=== PATIENT | male | born 1995 | race Caucasian/White ===

== ENCOUNTER 2017-03-04 10:32 | Emergency (ER) | payer OTHER, BC ==
--- NOTE | 2017-03-04 12:14 | ED Physician Documentation ---
PD HPI HEENT - Stated complaint Stated Complaint: CHIPPED TEETH - Chief complaint Chief Complaint: Heent - History obtained from History obtained from: Patient - History of Present Illness Timing - onset: Other (He works for a construction company, was using a nail gun and it recoiled and hit him, he has a fracture of #8 without pain, no other injuries.) Review of Systems Constitutional: denies: Fever, Chills Nose: denies: Rhinorrhea / runny nose, Congestion Throat: denies: Sore throat PD PAST MEDICAL HISTORY - Past Medical History Past Medical History: No Endocrine/Autoimmune: None - Past Surgical History Past Surgical History: Yes - Present Medications Home Medications: Ambulatory Orders Medication Instructions Recorded Confirmed No Known Home Medications [No 05/10/13 03/04/17 Known Home Medications] - Allergies Allergies/Adverse Reactions: Allergies Allergy/AdvReac Type Severity Reaction Status Date / Time No Known Drug Allergies Allergy Verified 03/04/17 10:58 - Social History Does the pt smoke?: No Smoking Status: Never smoker Does the pt drink ETOH?: Yes Does the pt have substance abuse?: Yes Substance Use and Type: Marijuana - Immunizations Immunizations: TDAP >10years/unknown PD ED PE NORMAL - Vitals Vital signs reviewed: Yes - General General: Alert and oriented X 3, No acute distress - HEENT HEENT: Other (Fracture of #8, oblique posterior just into enamel) - Neuro Neuro: Alert and oriented X 3, 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, Normal speech - Psych Psych: Normal mood, Normal affect Results - Vitals Vitals: Vital Signs - 24 hr 03/04/17 10:41 Temperature 37.2 C Heart Rate 76 Respiratory 18 Rate Blood Pressure 129/85 H O2 Saturation 98 Oxygen O2 Source Room air Departure - Departure Disposition: 01 Home, Self Care Clinical Impression: Fracture, tooth Qualifiers: Encounter type: initial encounter Fracture type: closed Qualified Code(s): S02.5XXA - Fracture of tooth (traumatic), initial encounter for closed fracture Condition: Good Record reviewed to determine appropriate education?: Yes Instructions: ED Fx Tooth Comments: FOLLOWUP WITH A DENTIST OF YOUR CHOOSING WHO TAKES L AND I, TAKE THE L AND I PAPERWORK WITH YOU Your blood pressure was elevated today on check into the emergency department. This does not mean that you have hypertension, it is a common phenomenon to come to the emergency department and have elevated blood pressure. I recommend that she see her primary care physician within the week to have it rechecked when you are feeling better.
[2017-03-04 12:20] VITALS: BP 114/75
== END 2017-03-04 12:20 | disposition home or self-care (01) ==
LOC: ED 10:32
DX: S02.5XXA Fracture of tooth (traumatic), initial encounter for closed fracture (principal); W22.8XXA Striking against or struck by other objects, initial encounter; Y93.89 Activity, other specified; Y92.69 Other specified industrial and construction area as the place of occurrence of the external cause; Y99.0 Civilian activity done for income or pay; R03.0 Elevated blood-pressure reading, without diagnosis of hypertension
CPT/HCPCS: 1040M; 99281; 99283

== ENCOUNTER 2017-06-16 17:14 | Emergency (ER) | payer BC ==
[2017-06-16 18:02] VITALS: BP 128/78
[2017-06-16] MEDS ORDERED: ALBUTEROL NEB 2.5 MG/3 ML INH STA (18:53)
[2017-06-16] MEDS ORDERED: predniSONE 20 MG TABLET PO STA (18:53)
[2017-06-16] MEDS ORDERED: DOXYCYCLINE 100 MG TABLET PO STA (18:53)
[2017-06-16] MEDS ORDERED: HYDROcod/ACETAM 5/325 MG TABLET PO STA (18:53)
--- NOTE | 2017-06-16 18:56 | ED Physician Documentation ---
History of Present Illness - Stated complaint Stated Complaint: MALE - Chief complaint Chief Complaint: General - History obtained from History obtained from: Patient - History of Present Illness Timing: Other (Several days of productive cough with shortness of breath and green sputum. He does not smoke. The cough is so bad that at night when he coughs very hard it radiates down to the left testicle. He does not have testicular pain when he is not coughing. No fevers.) Review of Systems Constitutional: denies: Fever, Chills Nose: denies: Rhinorrhea / runny nose, Congestion Cardiac: denies: Chest pain / pressure, Palpitations Respiratory: reports: Dyspnea, Cough GI: denies: Abdominal Pain PD PAST MEDICAL HISTORY - Past Medical History Past Medical History: No Endocrine/Autoimmune: None - Past Surgical History Past Surgical History: Yes - Present Medications Home Medications: Ambulatory Orders Medication Instructions Recorded Confirmed Albuterol Sulfate [Proventil Hfa 1 - 2 puffs IH Q4H PRN #1 06/16/17 Inhaler] hfa.[email or web address] Doxycycline Hyclate 100 mg PO BID #14 tablet 06/16/17 HYDROcod/ACETAM 5/325 [Bristow 5/325] 1 - 2 ea PO Q6H PRN #15 tablet 06/16/17 predniSONE [Deltasone] 60 mg PO DAILY 5 Days tablet 06/16/17 - Allergies Allergies/Adverse Reactions: Allergies Allergy/AdvReac Type Severity Reaction Status Date / Time No Known Drug Allergies Allergy Verified 03/04/17 10:58 - Social History Does the pt smoke?: No Smoking Status: Never smoker Does the pt drink ETOH?: Yes Does the pt have substance abuse?: Yes - Immunizations Immunizations: TDAP >10years/unknown PD ED PE NORMAL - Vitals Vital signs reviewed: Yes - General General: Alert and oriented X 3, No acute distress - HEENT HEENT: PERRL, EOMI - Neck Neck: Supple, no meningeal sign, No bony TTP, No bruit - Cardiac Cardiac: RRR, No murmur - Respiratory Respiratory: No respiratory distress, Other (Markedly wheezy and diminished throughout without focal findings) - Abdomen Abdomen: Soft, Non tender - Male Male : Other (Normal descended testicles with normal lie, nontender, normal cremaster reflexes bilaterally, no inguinal masses or tenderness.) - Neuro Neuro: Alert and oriented X 3, Normal speech - Psych Psych: Normal mood, Normal affect Results - Vitals Vitals: Vital Signs - 24 hr 06/16/17 06/16/17 17:32 17:53 Temperature 37.1 C Heart Rate 63 62 Respiratory 18 20 Rate Blood Pressure 140/94 H 128/78 O2 Saturation 95 95 Oxygen O2 Source Room air PD MEDICAL DECISION MAKING - ED course ED course: 21-year-old with evidence of bronchitis and a cough so bad that it makes his left testicle hurt. Torsion is not on the differential, he does not have any pain when he is not coughing, this is inconsistent with torsion. Departure - Departure Disposition: 01 Home, Self Care Clinical Impression: Bronchitis Condition: Good Record reviewed to determine appropriate education?: Yes Instructions: ED Bronchitis Asthmatic Prescriptions: Albuterol Sulfate [Proventil Hfa Inhaler] 1 - 2 puffs IH Q4H PRN #1 hfa.aer.ad PRN Reason: Cough Doxycycline Hyclate 100 mg PO BID #14 tablet HYDROcod/ACETAM 5/325 [Bristow 5/325] 1 - 2 ea PO Q6H PRN #15 tablet PRN Reason: Pain predniSONE [Deltasone] 60 mg PO DAILY 5 Days tablet Comments: Call your doctor to arrange a follow-up appointment, make the next available appointment. In the interim, return anytime if worse or if new symptoms develop. Do not drink or drive while taking narcotic pain medication. Note that many narcotic pain relievers also contain Tylenol/acetaminophen. Please ensure that your total dose of acetaminophen from all sources does not exceed 3 g (3000 mg) per day. You may get constipated while on this medication. Take a stool softener such as Colace twice a day while you are on it. Also add an hont-swh-auwezzb laxative such as senna or MiraLAX on any day that you do not have a bowel movement. If you received a narcotic pain medication or sedative while in the emergency department, do not drive for the next 24 hours. Forms: Activity restrictions
[2017-06-16] MEDS ORDERED: predniSONE 20 MG TABLET ONE (19:15)
[2017-06-16] MEDS ORDERED: DOXYCYCLINE 100 MG TABLET PO ONE (19:15)
[2017-06-16] MEDS ORDERED: HYDROcod/ACETAM 5/325 MG TABLET ONE (19:16)
[2017-06-16] MEDS ORDERED: ALBUTEROL NEB 2.5 MG/3 ML INH ONE (19:16)
== END 2017-06-16 19:41 | disposition home or self-care (01) ==
LOC: ED 17:14
DX: J40 Bronchitis, not specified as acute or chronic (principal)
CPT/HCPCS: 94640; 94664; 99283; A9270; J7512; J7613

== ENCOUNTER 2018-02-20 07:24 | Emergency (ER) | payer OTHER, BC ==
[2018-02-20 07:31] VITALS: BP 148/73
[2018-02-20] MEDS ORDERED: PROPARACAINE 0.5% OPHTH DROPS 15 ML RIGHTEYE STA (07:40)
[2018-02-20] MEDS ORDERED: ERYTHROMYCIN OPHTH OINT 1 GM TUBE RIGHTEYE STA (07:55)
--- NOTE | 2018-02-20 07:59 | ED Physician Documentation ---
PD HPI OPHTHO - Stated complaint Stated Complaint: R EYE INJ - Chief complaint Chief Complaint: Heent - History obtained from History obtained from: Patient PD PAST MEDICAL HISTORY - Past Medical History Past Medical History: No Endocrine/Autoimmune: None - Past Surgical History Past Surgical History: Yes - Allergies Allergies/Adverse Reactions: Allergies Allergy/AdvReac Type Severity Reaction Status Date / Time No Known Drug Allergies Allergy Verified 02/20/18 07:31 - Social History Does the pt smoke?: No Smoking Status: Never smoker Does the pt drink ETOH?: Yes Does the pt have substance abuse?: Yes - Immunizations Immunizations: TDAP >10years/unknown - POLST Patient has POLST: No Results - Vitals Vitals: Vital Signs - 24 hr 02/20/18 07:28 Temperature 36.5 C Heart Rate 61 Respiratory 16 Rate Blood Pressure 148/73 H O2 Saturation 98 Oxygen O2 Source Room air PD MEDICAL DECISION MAKING - Sepsis Event Vital Signs: Vital Signs - 24 hr 02/20/18 07:28 Temperature 36.5 C Heart Rate 61 Respiratory 16 Rate Blood Pressure 148/73 H O2 Saturation 98 Oxygen O2 Source Room air Departure - Departure Disposition: 01 Home, Self Care Clinical Impression: Contusion of right eye Qualifiers: Encounter type: initial encounter Qualified Code(s): S05.11XA - Contusion of eyeball and orbital tissues, right eye, initial encounter Conjunctivitis Qualifiers: Conjunctivitis type: acute Acute conjunctivitis type: unspecified Laterality: right Qualified Code(s): H10.31 - Unspecified acute conjunctivitis, right eye Condition: Stable Instructions: ED Contusion Eye Follow-Up: [facility] [Provider Group] [facility] [Provider Group] Comments: Apply erythromycin ophthalmic ointment in your right eye 4 times daily for the next 2 days. You can use Tylenol or ibuprofen if needed for discomfort. Follow-up with ophthalmology, or return to the emergency department if you develop increasing pain or swelling of your eye, impaired visual acuity, or otherwise worsening symptoms.
--- NOTE | 2018-02-20 08:01 | ED Physician Documentation ---
PD HPI OPHTHO - Stated complaint Stated Complaint: R EYE INJ - Chief complaint Chief Complaint: Heent - History obtained from History obtained from: Patient - History of Present Illness Timing - onset: How many days ago (2) Timing - details: Still present Location: Right Associated symptoms: Redness, Tearing, FB sensation. No: Decreased vision Contributing factors: Blunt trauma Similar symptoms before: Has not had sx before - Additional information Additional information: The patient is a 22-year-old male who presents with right eye discomfort. He was using a nail gun 2 days ago on the job site, when plastic from the nail clip flew from the gun and impacted his right eye. He has noticed redness and swelling of the eyelid since that time, and has a foreign body sensation in the right eye. There has been tearing, without purulent drainage. He does not wear corrective lenses. He has no history of similar symptoms in the past. Review of Systems Constitutional: denies: Fever Eyes: reports: Irritation. denies: Decreased vision, Photophobia Nose: denies: Congestion Throat: denies: Sore throat GI: denies: Nausea, Vomiting Skin: denies: Rash Neurologic: denies: Headache PD PAST MEDICAL HISTORY - Past Medical History Past Medical History: No Endocrine/Autoimmune: None - Past Surgical History Past Surgical History: Yes - Allergies Allergies/Adverse Reactions: Allergies Allergy/AdvReac Type Severity Reaction Status Date / Time No Known Drug Allergies Allergy Verified 02/20/18 07:31 - Social History Does the pt smoke?: No Smoking Status: Never smoker Does the pt drink ETOH?: Yes Does the pt have substance abuse?: Yes - Immunizations Immunizations: TDAP >10years/unknown - POLST Patient has POLST: No PD ED PE NORMAL - Vitals Vital signs reviewed: Yes (Mild hypertension initially.) - General General: Alert and oriented X 3, Well developed/nourished - HEENT HEENT: Atraumatic, PERRL, EOMI - Neck Neck: Supple, no meningeal sign, No adenopathy - Respiratory Respiratory: No respiratory distress - Derm Derm: No rash - Neuro Neuro: Alert and oriented X 3, Normal speech PD ED PE EXPANDED - Eyes Eyes: Visual acuity - see nn (20/30 in each eye.), PERRL, Normal accommodation, EOMI, Right eye, Eyelid swelling (right upper eyelid.), No eyelid FB (everted), Injected conj/sclera, Anterior chambers clear. No: Exudate, Conj/sclera FB, Corneal FB, Corneal abrasion, Fluorescein uptake, Hyphema Results - Vitals Vitals: Vital Signs - 24 hr 02/20/18 07:28 Temperature 36.5 C Heart Rate 61 Respiratory 16 Rate Blood Pressure 148/73 H O2 Saturation 98 Oxygen O2 Source Room air PD MEDICAL DECISION MAKING - ED course Complexity details: considered differential, d/w patient, other (An L&I form was completed.) ED course: The patient's presentation is most consistent with contusion to the right eye and upper eyelid, with no evidence of corneal abrasion or ocular foreign body. Given the conjunctival injection, swelling of the upper lid, and mechanism of injury, the possibility of conjunctivitis is considered. Treatment in the emergency department included administration of erythromycin ophthalmic ointment. The remainder of the tube was dispensed. I discussed with him the expected course of injury, outpatient follow-up, as well as potentially worrisome signs or symptoms that should prompt reevaluation in the emergency department. An L&I form was completed. - Sepsis Event Vital Signs: Vital Signs - 24 hr 02/20/18 07:28 Temperature 36.5 C Heart Rate 61 Respiratory 16 Rate Blood Pressure 148/73 H O2 Saturation 98 Oxygen O2 Source Room air Departure - Departure Disposition: 01 Home, Self Care Clinical Impression: Contusion of right eye Qualifiers: Encounter type: initial encounter Qualified Code(s): S05.11XA - Contusion of eyeball and orbital tissues, right eye, initial encounter Conjunctivitis Qualifiers: Conjunctivitis type: acute Acute conjunctivitis type: unspecified Laterality: right Qualified Code(s): H10.31 - Unspecified acute conjunctivitis, right eye Condition: Stable Instructions: ED Contusion Eye Follow-Up: [facility] [Provider Group] Located [facility] [Provider Group] Comments: Apply erythromycin ophthalmic ointment in your right eye 4 times daily for the next 2 days. You can use Tylenol or ibuprofen if needed for discomfort. Follow-up with ophthalmology, or return to the emergency department if you develop increasing pain or swelling of your eye, impaired visual acuity, or otherwise worsening symptoms.
--- NOTE | 2018-02-20 08:17 | ED Physician Documentation ---
ED Addendum - Addendum Addendum: Coders: Please note that the report initiated at 7:56 AM was closed by mistake prior to my completion of the patient report. Notice that a new document was opened at 8:01 AM. The initial document should be disregarded. 02/20/18 08:14
== END 2018-02-20 08:10 | disposition home or self-care (01) ==
LOC: ED 07:24
DX: S05.11XA Contusion of eyeball and orbital tissues, right eye, initial encounter (principal); W20.8XXA Other cause of strike by thrown, projected or falling object, initial encounter; Y93.89 Activity, other specified; Y92.89 Other specified places as the place of occurrence of the external cause; Y99.0 Civilian activity done for income or pay
CPT/HCPCS: 1040M; 99283; J3490

== ENCOUNTER 2018-07-17 07:32 | Emergency (ER) | payer BC ==
[2018-07-17 08:18] LABS: MUDS CUTOFF CONCENTRATIONS CUTOFF CONC BELOW:
[2018-07-17 08:20] LABS: GLUCOSE, URINE (UA) NEGATIVE (NEGATIVE); KETONES,URINE (UA) 40 mg/dL (NEGATIVE); LEUKOCYTE ESTERASE, URINE NEGATIVE (NEGATIVE); NITRITE,URINE NEGATIVE (NEGATIVE); OCCULT BLOOD,URINE NEGATIVE (NEGATIVE); PROTEIN,URINE NEGATIVE (NEGATIVE); UROBILINOGEN,URINE 0.2 (NORMAL) E.U./dL (NORMAL)
[2018-07-17 08:23] LABS: CLARITY,URINE CLEAR (CLEAR)
[2018-07-17 08:25] LABS: BILIRUBIN,URINE NEGATIVE (NEGATIVE); ICTOTEST,URINE NEGATIVE
[2018-07-17 08:29] LABS: AMPHETAMINE SCREEN,URINE NEGATIVE (NEGATIVE); COCAINE SCREEN URINE NEGATIVE (NEGATIVE); METHAMPHETAMINES SCREEN, URINE NEGATIVE (NEGATIVE); OPIATE SCREEN, URINE NEGATIVE (NEGATIVE)
[2018-07-17 08:30] LABS: BENZODIAZEPINES SCREEN, URINE NEGATIVE (NEGATIVE); METHADONE SCREEN, URINE NEGATIVE (NEGATIVE); OXYCODONE SCREEN, URINE NEGATIVE (NEGATIVE); PROPOXYPHENE SCREEN, URINE NEGATIVE (NEGATIVE); TRICYCLIC ANTIDEPRESSANT,URINE NEGATIVE (NEGATIVE)
[2018-07-17 08:48] LABS: BASOPHILS % (AUTO) 0.5 %; EOSINOPHILS % (AUTO) 0.6 %; LYMPHOCYTES # (AUTO) 1.5 10^3/uL (1.5-3.5); LYMPHOCYTES % (AUTO) 25.7 %; MEAN CORPUSCULAR HEMOGLOBIN 30.3 pg (27.0-31.0); MEAN CORPUSCULAR HGB CONC 34.4 g/dL (32.0-36.0); MEAN CORPUSCULAR VOLUME 88.1 fL (80.0-94.0); MEAN PLATELET VOLUME 8.3 fL (7.4-11.4); MONOCYTES # (AUTO) 0.5 10^3/uL (0.0-1.0); MONOCYTES % (AUTO) 8.1 %; NEUTROPHILS # (AUTO) 3.7 10^3/uL (1.5-6.6); NEUTROPHILS % (AUTO) 65.1 %; PLT - PLATELET COUNT 181 10^3/uL (130-450); RED BLOOD COUNT 4.95 10^6/uL (4.70-6.10); RED CELL DISTRIBUTION WIDTH 12.9 % (12.0-15.0); WHITE BLOOD COUNT 5.7 x10^3/uL (4.8-10.8)
[2018-07-17 09:04] LABS: ACETAMINOPHEN < 10 ug/mL (10-30); ALBUMIN/GLOBULIN RATIO 1.8 (1.0-2.2); ALKALINE PHOSPHATASE 61 IU/L (42-121); ALT ALANINE AMINOTRANSFERASE 21 IU/L (10-60); AST ASPARTATE AMINOTRANSFERASE 32 IU/L (10-42); BILIRUBIN,TOTAL 1.9 mg/dL (0.2-1.0); BUN - BLOOD UREA NITROGEN 12 mg/dL (6-20); CALCIUM 9.7 mg/dL (8.5-10.3); CARBON DIOXIDE - CO2 24 mmol/L (21-32); CHLORIDE 101 mmol/L (101-111); CREATININE 0.9 mg/dL (0.6-1.2); GFR - MDRD 107 (>89); GLUCOSE 99 mg/dL (70-100); LIPASE 22 U/L (22-51); SALICYLATE < 6.0 mg/dL; SODIUM 136 mmol/L (135-145); TOTAL PROTEIN 7.8 g/dL (6.7-8.2)
--- NOTE | 2018-07-17 09:19 | ED Physician Documentation ---
PD HPI MHE - Stated complaint Stated Complaint: MHE - Chief complaint Chief Complaint: MHE - History obtained from History obtained from: Patient, Family - History of Present Illness Primary symptom: Other Timing - onset: How many years ago (!Hearing voices) Pain level max: 0 Pain level now: 0 Contributing factors: Substance abuse - drugs Similar symptoms before: No diagnosis Recently seen: Not recently seen - Additional information Additional information: 22-year-old male with no past medical or surgical history Or psychiatric admission here with father and sister who reported that patient had been hearing voices since July 12. Patient claimed that he has been hearing voices on and off for the past year. Family is concerned as patient disrupted a camper during their camping vacation in [place] last July 12. He thought that the campers were talking about him. Father stated that the past few days patient was hearing voices of people talking about him. Patient denies any trauma, injury, insect or animal bites. They claim that patient vapes CBD or marijuana oil 5 or 6 times a day. They also stated that he only drinks occasionally. Per father patient's mother is in [place] and has history of schizophrenia and a nervous breakdown but has refused treatment or accepting that she has a mental health problem. Review of Systems Ten Systems: 10 systems reviewed and negative Constitutional: denies: Fever, Chills, Myalgias Ears: denies: Ear pain Throat: denies: Sore throat Cardiac: denies: Chest pain / pressure Respiratory: denies: Dyspnea, Cough GI: denies: Abdominal Pain, Vomiting, Diarrhea Skin: denies: Rash, Bite / sting Musculoskeletal: denies: Neck pain, Back pain Neurologic: reports: Headache (Mild headache July 13 during verification). denies: Generalized weakness, Numbness, Difficulty speaking, Syncope, Seizure, Confused, Altered mental status, Unresponsive, Head injury, LOC Psychiatric: reports: Hallucinations. denies: Depressed, Suicidal, Homicidal, Delusions, Anxiety PD PAST MEDICAL HISTORY - Past Medical History Endocrine/Autoimmune: None - Past Surgical History Past Surgical History: Yes - Present Medications Home Medications: Ambulatory Orders Medication Instructions Recorded Confirmed No Known Home Medications 07/17/18 07/17/18 - Allergies Allergies/Adverse Reactions: Allergies Allergy/AdvReac Type Severity Reaction Status Date / Time No Known Drug Allergies Allergy Verified 07/17/18 07:48 - Social History Does the pt smoke?: No Smoking Status: Never smoker Does the pt drink ETOH?: Yes Does the pt have substance abuse?: Yes Substance Use and Type: Marijuana - Immunizations Immunizations: TDAP >10years/unknown - POLST Patient has POLST: No PD ED PE NORMAL - Vitals Vital signs reviewed: Yes - General General: Alert and oriented X 3, No acute distress, Well developed/nourished - HEENT HEENT: Atraumatic, PERRL, EOMI, Ears normal, Moist mucous membranes, Pharynx benign - Neck Neck: Supple, no meningeal sign, No bony TTP - Cardiac Cardiac: RRR, No murmur - Respiratory Respiratory: Clear bilaterally - Abdomen Abdomen: Normal bowel sounds, Soft, Non tender, Non distended - Back Back: No CVA TTP, No spinal TTP - Derm Derm: Normal color, Warm and dry, No rash - Extremities Extremities: No deformity, No tenderness to palpate, Normal ROM s pain - Neuro Neuro: Alert and oriented X 3, 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 When asked what they are talking about he stated he does not hear them.) Results - Vitals Vitals: Vital Signs - 24 hr 07/17/18 07/17/18 07/17/18 07:34 11:11 17:17 Temperature 37.3 C 37 C 36.8 C Heart Rate 72 72 74 Respiratory 16 16 15 Rate Blood Pressure 141/96 H 132/78 H 127/84 H O2 Saturation 99 99 98 Oxygen O2 Source Room air - Labs Labs: Laboratory Tests 07/17/18 07/17/18 07/17/18 08:10 08:37 08:37 WBC 5.7 RBC 4.95 Hgb 15.0 Hct 43.6 MCV 88.1 MCH 30.3 MCHC 34.4 RDW 12.9 Plt Count 181 MPV 8.3 Neut # (Auto) 3.7 Lymph # (Auto) 1.5 Ellsworth # (Auto) 0.5 Eos # (Auto) 0.0 Baso # (Auto) 0.0 Absolute Nucleated RBC 0.00 Nucleated RBC % 0.0 Sodium 136 Potassium 3.5 Chloride 101 Carbon Dioxide 24 Anion Gap 11.0 BUN 12 Creatinine 0.9 Estimated GFR (MDRD) 107 Glucose 99 Calcium 9.7 Total Bilirubin 1.9 H AST 32 ALT 21 Alkaline Phosphatase 61 Total Protein 7.8 Albumin 5.0 Globulin 2.8 Albumin/Globulin Ratio 1.8 Lipase 22 TSH Urine Color DARK YELLOW Urine Clarity CLEAR Urine pH 6.0 Ur Specific Liberty >=1.030 H Urine Protein NEGATIVE Urine Glucose (UA) NEGATIVE Urine Ketones 40 H Urine Occult Blood NEGATIVE Urine Nitrite NEGATIVE Urine Bilirubin NEGATIVE Urine Urobilinogen 0.2 (NORMAL) Ur Leukocyte Esterase NEGATIVE Ur Microscopic Review NOT INDICATED Urine Culture Comments NOT INDICATED Salicylates < 6.0 Urine Opiates Screen NEGATIVE Ur Oxycodone Screen NEGATIVE Urine Methadone Screen NEGATIVE Ur Propoxyphene Screen NEGATIVE Acetaminophen < 10 L Ur Barbiturates Screen NEGATIVE Ur Tricyclics Screen NEGATIVE Ur Phencyclidine Scrn NEGATIVE Ur Amphetamine Screen NEGATIVE U Methamphetamines Scrn NEGATIVE U Benzodiazepines Scrn NEGATIVE Urine Cocaine Screen NEGATIVE U Cannabinoids Screen POSITIVE H Ethyl Alcohol < 5.0 07/17/18 08:37 WBC RBC Hgb Hct MCV MCH MCHC RDW Plt Count MPV Neut # (Auto) Lymph # (Auto) Ellsworth # (Auto) Eos # (Auto) Baso # (Auto) Absolute Nucleated RBC Nucleated RBC % Sodium Potassium Chloride Carbon Dioxide Anion Gap BUN Creatinine Estimated GFR (MDRD) Glucose Calcium Total Bilirubin AST ALT Alkaline Phosphatase Total Protein Albumin Globulin Albumin/Globulin Ratio Lipase TSH 0.64 Urine Color Urine Clarity Urine pH Ur Specific Liberty Urine Protein Urine Glucose (UA) Urine Ketones Urine Occult Blood Urine Nitrite Urine Bilirubin Urine Urobilinogen Ur Leukocyte Esterase Ur Microscopic Review Urine Culture Comments Salicylates Urine Opiates Screen Ur Oxycodone Screen Urine Methadone Screen Ur Propoxyphene Screen Acetaminophen Ur Barbiturates Screen Ur Tricyclics Screen Ur Phencyclidine Scrn Ur Amphetamine Screen U Methamphetamines Scrn U Benzodiazepines Scrn Urine Cocaine Screen U Cannabinoids Screen Ethyl Alcohol PD MEDICAL DECISION MAKING - ED course Complexity details: reviewed results, re-evaluated patient, considered differential (Drug intake,Thyroid disease, intracranial mass, electrolyte imbalance, psychosis NOS, schizophrenia), d/w patient, d/w family, d/w cancer program consultant ED course: [id number] patient and family inform of test results. And pending return call of social service assistant. [id number] social service assistant in the ER and will be evaluating patient. 0991 DCR evaluated patient and he will detain the patient.[id number] patient had been eating well per nurse but is still complaining of mild headache and requesting for Tylenol. Psych placement pending.[id number] DCR Cricket informed me patient has been accepted to [facility] under the care of Dr. Clay. Transfer forms filled and signout given to Dr. Kline. Departure - Departure Disposition: 65 Psych Hosp/Unit DC/Xfer Clinical Impression: Hallucinations Unspecified psychosis Qualifiers: Psychosis type: unspecified psychosis type Qualified Code(s): F29 - Unspecified psychosis not due to a substance or known physiological condition Condition: Stable
--- NOTE | 2018-07-17 10:16 | CT Report ---
Reason: hearing voices Procedure Date: 07/17/2018 Accession Number: [id number] / [id number] Procedure: CT - Head W/O CPT Code: FULL RESULT: EXAM: CT HEAD WITHOUT CONTRAST EXAM DATE: 07/17/2018 09:53 AM. CLINICAL HISTORY: Hearing voices. COMPARISON: None. TECHNIQUE: Multiaxial CT images were obtained from the foramen magnum to the vertex. Reformats: Sagittal and coronal. IV contrast: None. In accordance with CT protocol optimization, one or more of the following dose reduction techniques were utilized for this exam: automated exposure control, adjustment of mA and/or KV based on patient size, or use of iterative reconstructive technique. FINDINGS: Parenchyma: No intraparenchymal hemorrhage. No evidence of mass, midline shift, or CT findings of infarction. Chavez-white differentiation is distinct. Extraaxial Spaces: Normal for age. No subdural or epidural collections identified. Ventricles: Normal in size and position. Sinuses and Orbits: Imaged paranasal sinuses, orbits, and mastoids show no significant abnormality. Bones: No evidence of fracture or calvarial defect. Other: None. IMPRESSION: Normal head CT. RADIA
[2018-07-17] MEDS ORDERED: ACETAMINOPHEN 325 MG TABLET PO STA (17:34)
[2018-07-17 21:24] VITALS: BP 141/89
== END 2018-07-17 21:45 ==
LOC: ED 07:32
DX: F29 Unspecified psychosis not due to a substance or known physiological condition (principal)
CPT/HCPCS: 36415; 70450; 80053; 80306; 80307; 80320; 80329; 81003; 83690; 84443; 85025; 99285; A9270; 81001; 87086; 99284

== ENCOUNTER 2019-03-12 15:31 | Outpatient (CLI) | payer BC ==
[2019-03-15 10:30] LABS: HIV AG/AB 4TH GEN NON-REACTIVE (NON-REACTIVE)
[2019-03-15 13:18] LABS: HEPATITIS C ANTIBODY NON-REACTIVE (NON-REACTIVE)
[2019-03-16 09:01] LABS: HSV 1 IGG TYPE SPECIFIC AB <0.90 index; HSV 2 IGG TYPE SPECIFIC AB <0.90 index
== END 2019-03-12 15:32 | disposition home or self-care (01) ==
LOC: LAB.S 15:31
PROVIDERS: ATTEND Nurse Practitioner
DX: Z11.3 Encounter for screening for infections with a predominantly sexual mode of transmission (principal)
CPT/HCPCS: 36415; 81599; 86695; 86696; 86803; 87389

== ENCOUNTER 2019-07-06 15:52 | Emergency (ER) | payer BC ==
--- NOTE | 2019-07-06 16:21 | ED Physician Documentation ---
PD HPI URI - Stated complaint Stated Complaint: FACIAL PAIN/COUGH/FEVER - Chief complaint Chief Complaint: Heent - History obtained from History obtained from: Patient - History of Present Illness Timing - onset: How many weeks ago (1) Timing duration: Weeks (1) Timing details: Still present Associated symptoms: Ear pain (left), Nasal congestion, Sore throat (some in mornings, not consistent), Other (he has had red spot on side of nose and it seems more red this week. Also he feels there is swelling on left cheek, with pressure feeling. Is concerned it is related to the nose redness. 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 No: Fever, Dry cough, Chest pain, Dyspnea Contributing factors: No: Sick contact, Immunocompromised Similar symptoms before: Has not had sx before Review of Systems Constitutional: reports: Myalgias. denies: Fever, Chills Nose: reports: Congestion, Sinus pressure / pain Throat: reports: Sore throat Respiratory: denies: Cough GI: denies: Vomiting, Diarrhea Neurologic: denies: Focal weakness, Near syncope, Headache PD PAST MEDICAL HISTORY - Past Medical History Past Medical History: Yes Cardiovascular: None Respiratory: None Neuro: None Endocrine/Autoimmune: None GI: None : None HEENT: None Psych: None Musculoskeletal: None Derm: None - Past Surgical History Past Surgical History: Yes - Present Medications Home Medications: Ambulatory Orders Medication Instructions Recorded Confirmed Cetirizine [ZyrTEC] 10 mg PO DAILY #15 tablet 07/06/19 Doxycycline Monohydrate 100 mg PO BID #14 tablet 07/06/19 dexAMETHasone [Decadron] 4 mg PO DAILY #5 tablet 07/06/19 - Allergies Allergies/Adverse Reactions: Allergies Allergy/AdvReac Type Severity Reaction Status Date / Time No Known Drug Allergies Allergy Verified 07/06/19 16:01 - Social History Does the pt smoke?: Yes Smoking Status: Current some day smoker Does the pt drink ETOH?: Yes Does the pt have substance abuse?: Yes Substance Use and Type: Marijuana - Immunizations Immunizations are current?: No Immunizations: TDAP >10years/unknown - POLST Patient has POLST: No PD ED PE NORMAL - Vitals Vital signs reviewed: Yes - General General: Alert and oriented X 3, No acute distress, Well developed/nourished - HEENT HEENT: Moist mucous membranes, Pharynx benign, Other (left side of nose with red spot about 1/2 cm diameter with normal skin texture, blanches, no ulceration nor raised, appearing like small capillary dilation. ). No: Ears normal (right is normal. Left TM with some fluid behind the drum but no redness nor swelling. ) - Neck Neck: Supple, no meningeal sign - Cardiac Cardiac: RRR, No murmur - Respiratory Respiratory: Clear bilaterally - Derm Derm: Normal color, Warm and dry - Neuro Neuro: Alert and oriented X 3, No motor deficit, Normal speech Results - Vitals Vitals: Vital Signs - 24 hr 07/06/19 07/06/19 16:01 17:22 Temperature 37.2 C 36.7 C Heart Rate 67 60 Respiratory 16 16 Rate Blood Pressure 128/74 125/72 O2 Saturation 99 97 Oxygen O2 Source Room air PD MEDICAL DECISION MAKING - ED course Complexity details: considered differential (the red spot on his nose appears benign and unrelated. He sounds like sinus symptoms, and then just viral vs bacterial, given the focal sinus symptoms. ), d/w patient Departure - Departure Disposition: 01 Home, Self Care Clinical Impression: Telangiectasia of face Acute sinusitis Qualifiers: Sinusitis location: unspecified location Recurrence: non-recurrent Qualified Code(s): J01.90 - Acute sinusitis, unspecified Condition: Stable Record reviewed to determine appropriate education?: Yes Instructions: ED Sinusitis Abx Tx Follow-Up: Clare Lopez ARNP, [facility] [employer] [facility] [Primary Care Provider] - Prescriptions: Cetirizine [ZyrTEC] 10 mg PO DAILY #15 tablet dexAMETHasone [Decadron] 4 mg PO DAILY #5 tablet Doxycycline Monohydrate 100 mg PO BID #14 tablet Comments: Use some saline nose spray 3-4 times daily for the next several days to cleanse the nasal passage and promote sinus drainage. Continue this after work daily for the next few weeks to cleanse out the dust and such that accumulates in the nasal passage during work. Doxycycline antibiotic as directed and Decadron steroid for inflammation of the sinuses as directed as well. Cetirizine antihistamine to decrease sinus congestion. Recheck if not improving well over the next several days to a week. The red spot in your nose looks like a small dilation of capillary blood vessels and is benign. It would need attention if you notice any waxiness of the skin, ulceration, or raising of the skin in the area. Otherwise it can be left alone. Discharge Date/Time: 07/06/19 17:24
[2019-07-06] MEDS ORDERED: CETIRIZINE 10 MG TABLET PO STA (17:04)
[2019-07-06] MEDS ORDERED: DOXYCYCLINE 100 MG TABLET PO STA (17:04)
[2019-07-06] MEDS ORDERED: CHERRY SYRUP 10 ML UDC PO ONE (17:04)
[2019-07-06] MEDS ORDERED: DEXAMETHASONE 10 MG/ML VIAL PO STA (17:04)
[2019-07-06 17:22] VITALS: BP 125/72
== END 2019-07-06 17:24 | disposition home or self-care (01) ==
LOC: ED 15:52
DX: J01.90 Acute sinusitis, unspecified (principal); I78.1 Nevus, non-neoplastic; Z72.0 Tobacco use
CPT/HCPCS: 99283; 99284; A9270

== ENCOUNTER 2021-11-17 20:32 | Outpatient (CLI) | payer SELFPAY | END 2021-11-17 20:33 | disposition left against medical advice (07) | LOC: EMS 20:32 | DX: M54.2 Cervicalgia (principal); V47.5XXA Car driver injured in collision with fixed or stationary object in traffic accident, initial encounter; Y92.410 Unspecified street and highway as the place of occurrence of the external cause ==

== ENCOUNTER 2022-01-18 18:00 | Emergency (ER) | payer BC ==
[2022-01-18 18:35] LABS: RAPID STREP SCREEN Negative (Negative)
--- NOTE | 2022-01-18 21:30 | ED Physician Documentation ---
History of Present Illness - Stated complaint Stated Complaint: WHITE SPOTS IN THROAT/HEADACHE/JHONNY - Chief complaint Chief Complaint: Heent - Additonal information Additional information: 26-year-old male presents emergency department for evaluation of a sore throat began about 1 week ago. He thinks there are white spots in the back of his throat. He thinks maybe he has had fevers but unsure. No cough or congestion. No chest pain or shortness of air. He did recently have a new kissing partner. Review of Systems Constitutional: denies: Fever Eyes: reports: Reviewed and negative Ears: reports: Reviewed and negative Nose: denies: Rhinorrhea / runny nose, Congestion Throat: reports: Sore throat Cardiac: reports: Reviewed and negative Respiratory: reports: Reviewed and negative GI: reports: Reviewed and negative PD PAST MEDICAL HISTORY - Past Medical History Cardiovascular: None Respiratory: None Neuro: None Endocrine/Autoimmune: None GI: None : None HEENT: None Psych: None Musculoskeletal: None Derm: None - Past Surgical History Past Surgical History: Yes - Present Medications Home Medications: Ambulatory Orders Medication Instructions Recorded Confirmed Cetirizine [ZyrTEC] 10 mg PO DAILY #15 tablet 07/06/19 Doxycycline Monohydrate 100 mg PO BID #14 tablet 07/06/19 dexAMETHasone [Decadron] 4 mg PO DAILY #5 tablet 07/06/19 - Allergies Allergies/Adverse Reactions: Allergies Allergy/AdvReac Type Severity Reaction Status Date / Time No Known Drug Allergies Allergy Verified 01/18/22 18:15 - Social History Does the pt smoke?: Yes Smoking Status: Current some day smoker Does the pt drink ETOH?: Yes Does the pt have substance abuse?: Yes - Immunizations Immunizations are current?: No Immunizations: TDAP >10years/unknown - POLST Patient has POLST: No PD ED PE EXPANDED - General General: Alert, No acute distress, Well developed/nourished - HEENT HEENT: Pharyngeal erythema (No sawPosterior oropharynx erythema without exudate. Uvula is midline. Palate asymmetry or swelling. No trismus. Normal phonation. Normal swallow). No: Swollen tonsils, Tonsillar exudate Results - Vitals Vitals: Vital Signs - 24 hr 01/18/22 18:13 Temperature 36.7 C Heart Rate 63 Respiratory 16 Rate Blood Pressure 140/75 H O2 Saturation 100 Oxygen O2 Source Room air - Labs Labs: Laboratory Tests 01/18/22 18:17 Group A Strep Rapid Negative PD MEDICAL DECISION MAKING - ED course Complexity details: considered differential, d/w patient ED course: 26-year-old male presents emergency department for evaluation of 1 week sore throat. Rapid strep is negative. Will defer culture and less antibiotics positive given the otherwise benign appearance of his throat. Clinically no findings to suggest RPA or HYDROCHLORIC ACID OPERATOR. Recommend warm salt water gargles and Tylenol or ibuprofen. Departure - Departure Disposition: 01 Home, Self Care Clinical Impression: Sore throat Condition: Stable Record reviewed to determine appropriate education?: Yes Comments: You are seen today in the emergency department because you have had a sore throat for a little more than a week. You also thought that there were white spots in the back your throat. I do not see any white spots. The rapid strep testing that we did today is negative. I do recommend that you gargle with warm salt water 2 or 3 times a day. Taking a teaspoon of honey can also help with throat pain. You can continue Tylenol or ibuprofen [id number]. We will notify you if your strep culture is positive over the next 48 hours.
[2022-01-18 21:34] VITALS: BP 130/70
== END 2022-01-18 21:32 | disposition home or self-care (01) ==
LOC: ED 18:00
DX: J02.9 Acute pharyngitis, unspecified (principal); F17.200 Nicotine dependence, unspecified, uncomplicated
CPT/HCPCS: 87070; 87430; 99282; 99283

== ENCOUNTER 2022-02-14 15:27 | Emergency (ER) | payer BC ==
[2022-02-14 16:31] LABS: BASOPHILS % (AUTO) 0.3 %; EOSINOPHILS % (AUTO) 0.3 %; HCT - HEMATOCRIT 45.2 % (42.0-52.0); LYMPHOCYTES # (AUTO) 1.9 10^3/uL (1.5-3.5); LYMPHOCYTES % (AUTO) 28.5 %; MEAN CORPUSCULAR HEMOGLOBIN 29.6 pg (27.0-31.0); MEAN CORPUSCULAR HGB CONC 33.2 g/dL (32.0-36.0); MEAN CORPUSCULAR VOLUME 89.3 fL (80.0-94.0); MEAN PLATELET VOLUME 10.3 fL (7.4-11.4); MONOCYTES # (AUTO) 0.4 10^3/uL (0.0-1.0); MONOCYTES % (AUTO) 6.6 %; NEUTROPHILS # (AUTO) 4.3 10^3/uL (1.5-6.6); PLT - PLATELET COUNT 173 10^3/uL (130-450); RED BLOOD COUNT 5.06 10^6/uL (4.70-6.10); WHITE BLOOD COUNT 6.7 x10^3/uL (4.8-10.8)
[2022-02-14 16:42] LABS: ALBUMIN 4.9 g/dL (3.2-5.5); CALCIUM 9.8 mg/dL (8.5-10.3); CREATININE 1.1 mg/dL (0.6-1.2); POTASSIUM 3.6 mmol/L (3.5-5.0); TOTAL PROTEIN 7.4 g/dL (6.7-8.2)
--- NOTE | 2022-02-14 18:03 | ED Physician Documentation ---
PD HPI ABD PAIN - Stated complaint Stated Complaint: ABD PX - Chief complaint Chief Complaint: Abd Pain - History obtained from History obtained from: Patient - Additional information Additional information: The patient comes to the emergency department with chief complaint of left lower abdominal pain after doing some heavy lifting a few days ago. 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 He is felt something "give" and has noticed worsening superior bulge and tenderness there since. He states his father had a hernia that had to be repaired. Patient denies any other complaints at this time. Review of Systems Ten Systems: 10 systems reviewed and negative Constitutional: reports: Reviewed and negative Eyes: reports: Reviewed and negative Ears: reports: Reviewed and negative Nose: reports: Reviewed and negative Throat: reports: Reviewed and negative Cardiac: reports: Reviewed and negative Respiratory: reports: Reviewed and negative GI: reports: Abdominal Pain, Abdominal Swelling : reports: Reviewed and negative Skin: reports: Reviewed and negative Musculoskeletal: reports: Reviewed and negative Neurologic: reports: Reviewed and negative Psychiatric: reports: Reviewed and negative Endocrine: reports: Reviewed and negative Immunocompromised: reports: Reviewed and negative PD PAST MEDICAL HISTORY - Past Medical History Cardiovascular: None Respiratory: None Neuro: None Endocrine/Autoimmune: None GI: None : None HEENT: None Psych: None Musculoskeletal: None Derm: None - Past Surgical History Past Surgical History: Yes - Present Medications Home Medications: Ambulatory Orders Medication Instructions Recorded Confirmed Cetirizine [ZyrTEC] 10 mg PO DAILY #15 tablet 07/06/19 Doxycycline Monohydrate 100 mg PO BID #14 tablet 07/06/19 dexAMETHasone [Decadron] 4 mg PO DAILY #5 tablet 07/06/19 - Allergies Allergies/Adverse Reactions: Allergies Allergy/AdvReac Type Severity Reaction Status Date / Time No Known Drug Allergies Allergy Verified 02/14/22 15:43 - Social History Does the pt smoke?: Yes Smoking Status: Current some day smoker Does the pt drink ETOH?: Yes Does the pt have substance abuse?: Yes - Immunizations Immunizations are current?: No Immunizations: TDAP >10years/unknown - POLST Patient has POLST: No PD ED PE NORMAL - Vitals Vital signs reviewed: Yes - General General: Alert and oriented X 3, No acute distress, Well developed/nourished - HEENT HEENT: Atraumatic, PERRL, EOMI, Moist mucous membranes - Neck Neck: Supple, no meningeal sign - Respiratory Respiratory: No respiratory distress - Abdomen Abdomen: Soft, Non distended, Other (Mild tenderness and prominence of abdominal wall laterally on the left around the level of the iliac crest. No distinct defect. No crepitus.) - Derm Derm: Warm and dry - Extremities Extremities: No deformity - Neuro Neuro: Alert and oriented X 3 - Psych Psych: Normal mood, Normal affect Results - Vitals Vitals: Vital Signs - 24 hr 02/14/22 15:36 Temperature 36.8 C Heart Rate 68 Respiratory 14 Rate Blood Pressure 127/73 O2 Saturation 98 Oxygen O2 Source Room air - Labs Labs: Laboratory Tests 02/14/22 02/14/22 16:25 16:25 WBC 6.7 RBC 5.06 Hgb 15.0 Hct 45.2 MCV 89.3 MCH 29.6 MCHC 33.2 RDW 12.0 Plt Count 173 MPV 10.3 Neut # (Auto) 4.3 Lymph # (Auto) 1.9 Ocean # (Auto) 0.4 Eos # (Auto) 0.0 Baso # (Auto) 0.0 Absolute Nucleated RBC 0.00 Nucleated RBC % 0.0 Sodium 135 Potassium 3.6 Chloride 99 L Carbon Dioxide 29 Anion Gap 7.0 BUN 15 Creatinine 1.1 Estimated GFR (MDRD) 82 L Glucose 127 H Calcium 9.8 Total Bilirubin 1.0 AST 19 ALT 21 Alkaline Phosphatase 52 Total Protein 7.4 Albumin 4.9 Globulin 2.5 Albumin/Globulin Ratio 2.0 Lipase 28 PD MEDICAL DECISION MAKING - ED course Complexity details: reviewed results, re-evaluated patient, considered differential, d/w patient ED course: CT of the abdomen and pelvis was performed and did not show a distinct hernia by my interpretation. However, I discussed with the patient that he may be in the process of forming a hernia, and needs to be very careful about how he does heavy lifting. We have discussed that he should rest his abdominal muscles for the next week or so to prevent worsening of the situation. We have also discussed that he will need to follow-up with the surgeons if he does develop a hernia to discuss repair. I have also advised him to get a supportive hernia belt from [employer] to help lend support in the lower abdominal wall. Departure - Departure Disposition: 01 Home, Self Care Clinical Impression: Abdominal pain Qualifiers: Abdominal location: left lower quadrant Qualified Code(s): R10.32 - Left lower quadrant pain Abdominal wall strain Qualifiers: Encounter type: initial encounter Qualified Code(s): S39.011A - Strain of muscle, fascia and tendon of abdomen, initial encounter Condition: Stable Instructions: ED Strain Abdominal Muscle Follow-Up: Srinivasa Key MD [Provider Admit Priv/Credential] - Comments: Your CT scan at this point in time shows no distinct hernia, though there is a thin area which may be on the verge of becoming a hernia. You have very least strained your abdominal wall and need to avoid heavy lifting over the next week or two to allow this to heal. Since you already have a family history of hernia, you are at increased likelihood of forming one yourself. Please make an appointment to follow-up with your primary care physician or the surgeons, should you feel your symptoms are getting worse. You may also order a hernia belt off of [employer] to help support your lower abdominal wall. Forms: Activity restrictions
--- NOTE | 2022-02-14 18:04 | CT Report ---
PROCEDURE: Abdomen/Pelvis WO INDICATIONS: LLQ pain/bulge after injury, ? hernia TECHNIQUE: Noncontrast 5 mm thick sections acquired from the diaphragms to the symphysis. 5 mm coronal and sagi ttal reformats were then performed. For radiation dose reduction, the following was used: automated exposure control, adjustment of mA and/or kV according to patient size. COMPARISON: None. FINDINGS: Image quality: Excellent. ABDOMEN: Lung bases: Lung bases are clear. Heart size is normal. Solid organs: Liver and spleen are normal in size. Gallbladder is normal Pancreas is normal in con tours. No adrenal nodules. Kidneys are normal in size, without hydronephrosis or nephrolithiasis. Peritoneum and bowel: Unenhanced bowel loops demonstrate normal wall thickness and caliber. No free fluid or air. Nodes and vessels: No retroperitoneal or mesenteric adenopathy by size criteria. Aorta and inferior vena cava are normal in caliber. Miscellaneous: No ventral hernias. PELVIS: Genitourinary: Bladder wall thickness is normal. Miscellaneous: No inguinal hernias or adenopathy. Bones: No suspicious bony lesions. No vertebral body compression fractures. IMPRESSION: No acute abdominal or pelvic abnormality. No hernia. Reviewed by: Mikal Young on 02/14/2022 6:03 PM PDT Approved by: Mikal Young on 02/14/2022 6:03 PM PDT Station ID: [id number]
[2022-02-14 18:13] VITALS: BP 121/69
== END 2022-02-14 18:11 | disposition home or self-care (01) ==
LOC: ED 15:27
DX: S39.011A Strain of muscle, fascia and tendon of abdomen, initial encounter (principal); X50.0XXA Overexertion from strenuous movement or load, initial encounter; Y99.0 Civilian activity done for income or pay; F17.200 Nicotine dependence, unspecified, uncomplicated
CPT/HCPCS: 1040M; 36415; 74176; 80053; 83690; 85025; 99282; 99284

== ENCOUNTER 2022-08-27 11:54 | Outpatient (CLI) | payer OTHER ==
--- NOTE | 2022-08-27 12:41 | CT Report ---
PROCEDURE: ABDOMEN/PELVIS WO INDICATIONS: ABD PAIN TECHNIQUE: Noncontrast 5 mm thick sections acquired from the diaphragms to the symphysis. 5 mm coronal and sagi ttal reformats were then performed. For radiation dose reduction, the following was used: automated exposure control, adjustment of mA and/or kV according to patient size. COMPARISON: 02/06/2022 FINDINGS: Image quality: Excellent. ABDOMEN: Lung bases: Lung bases are clear. Heart size is normal. Solid organs: Liver and spleen are normal in size. 2 prominent accessory spleens are noted. This is unchanged. Gallbladder is contracted, within normal limits Pancreas is normal in contours. No adren al nodules. Kidneys are normal in size, without hydronephrosis or nephrolithiasis. Peritoneum and bowel: Unenhanced bowel loops demonstrate normal wall thickness and caliber. No free fluid or air. Nodes and vessels: No retroperitoneal or mesenteric adenopathy by size criteria. Aorta and inferior vena cava are normal in caliber. Miscellaneous: No ventral hernias. PELVIS: Genitourinary: Bladder wall thickness is normal. Miscellaneous: No inguinal hernias or adenopathy. Bones: No suspicious bony lesions. No vertebral body compression fractures. IMPRESSION: Unremarkable noncontrast CT of the abdomen and pelvis. No evidence of acute abdominal process. Reviewed by: Montrell Davis MD on 08/27/2022 12:39 PM PST Approved by: Montrell Davis MD on 08/27/2022 12:39 PM PST Station ID: [id number]
== END 2022-08-27 11:55 | disposition home or self-care (01) ==
LOC: DI 11:54
PROVIDERS: ATTEND Nurse Practitioner
DX: R10.9 Unspecified abdominal pain (principal)

== ENCOUNTER 2023-01-13 14:36 | Emergency (ER) | payer BC, MEDICAID ==
--- NOTE | 2023-01-13 15:02 | ED Physician Documentation ---
History of Present Illness - Stated complaint Stated Complaint: RT SIDE SWELLING - Chief complaint Chief Complaint: General - History obtained from History obtained from: Patient - Additonal information Additional information: The patient comes to the emergency department chief complaint of right anterior rib pain for about the last week after getting into a "wrestling match" with another person. He states that that his opponent landed on his chest with the opponent's chest and that "both of us broke a rib". Patient states he has had rib pain around the level of his right breast since then and feels slightly worse now. He denies fever, chills, or cough. No other injuries. No other complaints at this time. PD PAST MEDICAL HISTORY - Past Medical History Cardiovascular: None Respiratory: None Neuro: None Endocrine/Autoimmune: None GI: None : None HEENT: None Psych: None Musculoskeletal: None Derm: None - Past Surgical History Past Surgical History: Yes - Present Medications Home Medications: Ambulatory Orders Medication Instructions Recorded Confirmed Cetirizine [ZyrTEC] 10 mg PO DAILY #15 tablet 07/06/19 Doxycycline Monohydrate 100 mg PO BID #14 tablet 07/06/19 dexAMETHasone [Decadron] 4 mg PO DAILY #5 tablet 07/06/19 - Allergies Allergies/Adverse Reactions: Allergies Allergy/AdvReac Type Severity Reaction Status Date / Time No Known Drug Allergies Allergy Verified 02/14/22 15:43 - Social History Does the pt smoke?: Yes Smoking Status: Current some day smoker Does the pt drink ETOH?: Yes Does the pt have substance abuse?: Yes - Immunizations Immunizations are current?: No Immunizations: TDAP >10years/unknown - POLST Patient has POLST: No PD ED PE NORMAL - Vitals Vital signs reviewed: Yes - General General: Alert and oriented X 3, No acute distress, Well developed/nourished - HEENT HEENT: Atraumatic, PERRL, EOMI, Moist mucous membranes - Neck Neck: Supple, no meningeal sign - Cardiac Cardiac: RRR, No murmur, Strong equal pulses - Respiratory Respiratory: No respiratory distress, Clear bilaterally - Abdomen Abdomen: Soft, Non tender, Non distended - Derm Derm: Normal color, Warm and dry, No rash - Extremities Extremities: No deformity, No edema - Neuro Neuro: Alert and oriented X 3 - Psych Psych: Normal mood, Normal affect - Free text exam Free text exam: Tenderness to palpation with mild step-off around the fifth rib level in the midclavicular line anteriorly. No crepitus. Results - Vitals Vitals: Oxygen O2 Source Room air PD Medical Decision Making - ED course Complexity details: reviewed results, re-evaluated patient, considered differential, d/w patient ED course: The patient was worked up with a rib and chest x-ray series, which was negative. We have discussed symptomatic management and the usual indications for return. Departure - Departure Disposition: 01 Home, Self Care Clinical Impression: Contusion of chest Qualifiers: Encounter type: initial encounter Laterality: right Qualified Code(s): S20.211A - Contusion of right front wall of thorax, initial encounter Condition: Stable Instructions: ED Contusion Rib Comments: Your x-rays actually look very good. There is no evidence of a rib fracture. Most likely, you bruised your rib during the wrestling match you are having. The swollen area may represent some soft tissue swelling but is not a displaced rib. You may take ibuprofen and Tylenol and apply ice packs as needed. Please follow-up with your primary doctor as needed. Discharge Date/Time: 01/13/23 16:29
--- NOTE | 2023-01-13 16:10 | XRAY Report ---
PROCEDURE: Ribs w/PA Chest RT INDICATIONS: R rib pain after trauma TECHNIQUE: 2 views of the right ribs were acquired, along with a single view chest. COMPARISON: None. FINDINGS: Surgical changes and devices: None. Bones and chest wall: No fractures or dislocations. No suspicious bony lesions. Overlying soft tis sues appear unremarkable. Lungs and pleura: No pleural effusions or pneumothorax. Lungs appear clear. Mediastinum: Mediastinal contours appear normal. Heart size is normal. IMPRESSION: No displaced rib fracture or pneumothorax. No acute pulmonary process. Reviewed by: Montrell Davis MD on 01/13/2023 4:09 PM PDT Approved by: Montrell Davis MD on 01/13/2023 4:09 PM PDT Station ID: [id number]
[2023-01-13 16:29] VITALS: BP 131/92
== END 2023-01-13 16:29 | disposition home or self-care (01) ==
LOC: ED 14:36
DX: S20.211A Contusion of right front wall of thorax, initial encounter (principal); W50.0XXA Accidental hit or strike by another person, initial encounter; Y93.72 Activity, wrestling; F17.200 Nicotine dependence, unspecified, uncomplicated
CPT/HCPCS: 99283

== ENCOUNTER 2023-05-09 10:18 | Emergency (ER) | payer BC, MEDICAID ==
[2023-05-09 10:24] VITALS: BP 147/82; O2SAT 99
--- NOTE | 2023-05-09 11:42 | ED Physician Documentation ---
PD HPI ABD PAIN - Stated complaint Stated Complaint: GI - Chief complaint Chief Complaint: Abd Pain - History obtained from History obtained from: Patient - History of Present Illness Timing - onset: How many months ago (2) Timing - duration: Months (2) Timing - details: Intermittant (had noted some protrusion around umbilicaus with lifting and activity. Feels itchy at times but no epiosdes of cramping, distension, vomiting. The last week or two, has noted some tenderness/aches at the are when protruding. Easily pushes back in per ptient. Here for eval, did not know where to go.) Quality: Aching, Dull (at times) Location: Periumbilical Associated symptoms: No: Nausea, Vomiting, Diarrhea, Constipation, Dysuria Recently seen: Not recently seen Review of Systems GI: denies: Nausea, Vomiting, Constipation, Diarrhea : denies: Dysuria PD PAST MEDICAL HISTORY - Past Medical History Past Medical History: Yes Cardiovascular: None Respiratory: None Neuro: None Endocrine/Autoimmune: None GI: None : None HEENT: None Psych: None Musculoskeletal: None Derm: None - Past Surgical History Past Surgical History: Yes - Allergies Allergies/Adverse Reactions: Allergies Allergy/AdvReac Type Severity Reaction Status Date / Time No Known Drug Allergies Allergy Verified 05/09/23 10:24 - Social History Does the pt smoke?: Yes Smoking Status: Current every day smoker Does the pt drink ETOH?: Yes Does the pt have substance abuse?: Yes - Immunizations Immunizations are current?: No Immunizations: TDAP >10years/unknown - POLST Patient has POLST: No PD ED PE NORMAL - Vitals Vital signs reviewed: Yes - General General: Alert and oriented X 3, No acute distress, Well developed/nourished - Abdomen Abdomen: Normal bowel sounds, Soft, Non tender, Non distended, No organomegaly, Other (small hernia defect feltsupine but no protrusion. Standing position and with increased abd pressure, there is some soft tissue protrusion c/w hernia. Easily back in when relaxed. ) - Derm Derm: Normal color, Warm and dry Results - Vitals Vitals: Oxygen O2 Source Room air PD Medical Decision Making - ED course Complexity details: considered differential (he has had hernia sounding symptoms, and has one palpable in standing position with abd pressure (tightening abd). Instructed on symptoms of incarceration, otherwise given referrals to surgical offices for consultation. ), d/w patient Departure - Departure Disposition: 01 Home, Self Care Clinical Impression: Umbilical hernia Condition: Stable Record reviewed to determine appropriate education?: Yes Instructions: ED Hernia Inguinal Follow-Up: Lloyd Archibald MD [Provider Admit Priv/Credential] - Libby Alexander MD [Provider Admit Priv/Credential] - Comments: You do have an umbilical hernia. Since it is symptomatic for you, it would make sense to consult with a surgeon to discuss repair of it. I provided the names of 2 of the surgeon groups here in [place]. Call and follow-up with either. The information sheet I printed refers to groin hernia as we did not have a dedicated 1 for umbilical hernia but the information to watch out for and complications is the same. Activity as tolerated for symptoms. Return to the ER if you have an episode where it gets tender hard and seems stuck out and not able to be pushed back in. Commonly this will be associated with cramping pains and sometimes vomiting. He would want to come to the ER if that were to develop (incarcerated hernia) as a wants to get improved in a timely fashion. Otherwise just symptomatically sticking out and soft and able to be reduced back in is okay. Forms: PCP List Discharge Date/Time: 05/09/23 13:22
== END 2023-05-09 13:22 | disposition home or self-care (01) ==
LOC: ED 10:18
DX: K42.9 Umbilical hernia without obstruction or gangrene (principal); F17.200 Nicotine dependence, unspecified, uncomplicated
CPT/HCPCS: 99282; 99283